=== PATIENT | female | born 1990 | race Caucasian/White ===

== ENCOUNTER 2019-05-12 14:41 | Emergency (ER) | payer BC ==
[~2019-05-12] VITALS: Ht 180.3 cm; Wt 90.2 kg
[~2019-05-12 14:41] MED LIST: CEPH-443 PO; IBUP-1542 PO
[2019-05-12 14:45] VITALS: BP 133/75; PULSE 94; RESP 18; Ht 180.3 cm; Wt 90.2 kg
[2019-05-12] MEDS ORDERED: KETOROLAC 30 MG INJ IV STA (15:02)
[2019-05-12] MEDS ORDERED: SOD CHLORIDE 0.9% 1,000 ML IV STA (15:02)
== END 2019-05-12 16:50 | disposition home or self-care (01) ==
LOC: FTE 14:41
DX: N39.0 Urinary tract infection, site not specified (principal)
CPT/HCPCS: 36415; 71045; 74176; 80053; 81001; 81025; 83690; 85025; 87086; 96361; 96374; 99285; J1885; J7030; 81003